=== PATIENT | female | born 1940 | race Two or more races ===

== ENCOUNTER 2016-11-28 19:08 | Inpatient (IN) | payer OTHER, MEDICAID ==
[~2016-11-28] VITALS: Ht 157.5 cm; Wt 45.8 kg
--- NOTE | 2016-11-28 00:10 | NUR ---
RN NOTES: DR PONCE AT BEDSIDE TO ASSESS PATIENT. ALSO INFORMED HIM REGARDING PATIENT'S HOME MED OF BRILINTA 90 MG PO BID. NO ORDER RECEIVED IF IT IS TO BE CONTINUED, PER MD, CARDIO WILL CONSULT PATIENT IN AM. MD ORDERED FOR ACCUCHECK MILD ACHS WELL HGBA1C. ORDERS NOTED AND CARRIED OUT. Addendum: 11/29/16 at 0059 by IMELDA CASTRO RN WRONG TIME/DATE. PLEASE DISREGARD.
--- NOTE | 2016-11-28 19:16 | NUR ---
PT BIB [facility] FROM [facility] AT FACILITY. INCREASING DEMENTIA AND PT IS AA&O X2. PT AMBULATES WITH ASSISTANCE. PT STATED THAT SHE USES A WALKER TO AMBULATE. PT IS ON THE MONITOR AND CONTINUOUS PULSE OX.
--- NOTE | 2016-11-28 19:32 | NUR ---
PT IS UNABLE TO GIVE A URINE SAMPLE. PT AMBULATED BACK TO BED #3 WITH ASSISTANCE. EKG IN PROGRESS AT THE BEDSIDE. SOFTWARE APPLICATIONS SPECIALIST IS AT THE BEDSIDE.
--- NOTE | 2016-11-28 19:32 | NUR ---
DR. MENDEZ NOTIFIED THAT PT IS UNABLE TO GIVE A URINE SAMPLE. DR. MENDEZ DOES NOT WANT A URINE SAMPLE BY EID AND SAID HE WAS NOT WORRIED IF PT WAS UNABLE TO GIVE A URINE SAMPLE.
[2016-11-28 20:00] LABS: CALCIUM, SERUM 9.6 mg/dL (8.5-10.1); CARBON DIOXIDE 28 mmol/L (21-32); CHLORIDE 99 mmol/L (98-107); CREATININE 2.1 mg/dL (0.6-1.3); GLUCOSE 98 mg/dL (74-106); POTASSIUM 3.1 mmol/L (3.5-5.1); SODIUM SERUM 139 mmol/L (136-145); UREA NITROGEN, BLOOD 45 mg/dL (7-18)
[2016-11-28 20:02] LABS: ALCOHOL, BLOOD < 3 mg/dL (0-0)
[2016-11-28] MEDS ORDERED: LISI-603 PO (20:07)
[2016-11-28] MEDS ORDERED: LEVO50TA8 PO (20:07)
[2016-11-28] MEDS ORDERED: CLON0.5T PO (20:07)
[2016-11-28] MEDS ORDERED: CARV12.52 PO (20:07)
[2016-11-28] MEDS ORDERED: METF500T4 PO (20:07)
[2016-11-28] MEDS ORDERED: TEMA15CA5 PO (20:07)
[2016-11-28] MEDS ORDERED: ASPI-991 PO (20:07)
[2016-11-28] MEDS ORDERED: ROSU20TA PO (20:07)
[2016-11-28] MEDS ORDERED: FURO40TA5 PO (20:07)
[2016-11-28] MEDS ORDERED: ONDA4TAB5 PO (20:07)
[2016-11-28 20:14] LABS: THYROID STIMULATING HORMONE 9.413 uIU/mL (0.358-3.74)
--- NOTE | 2016-11-28 20:50 | NUR ---
EID INSERTED PER DR. MENDEZ. APPROX 150 ML YELLOW URINE OUTPUT NOTED.
--- NOTE | 2016-11-28 21:00 | NUR ---
PT APPEARS TO BE RESTING COMFORTABLY WITH NO S/S OF PAIN OR DISTRESS.
[2016-11-28 21:10] LABS: APPEARANCE,URINE CLEAR (CLEAR); BILIRUBIN,URINE NEGATIVE (NEGATIVE); BLOOD, URINE NEGATIVE Ery/uL (NEGATIVE); COLOR,URINE YELLOW (YELLOW); KETONES,URINE NEGATIVE (NEGATIVE); LEUKOCYTE ESTERASE ,URINE NEGATIVE (NEGATIVE); NITRITE, URINE NEGATIVE (NEGATIVE); PH,URINE 5.5 (5.0-8.0); PROTEIN,URINE NEGATIVE (NEGATIVE); UGLUCOSE NEGATIVE (NEGATIVE); UROBILINOGEN,URINE 0.2 EU/dL (0.2)
[2016-11-28 21:13] LABS: BASOPHILS # (AUTO) 0.1 /CMM (0.0-0.2); BASOPHILS % (AUTO) 0.8 % (0.0-2.0); EOSINOPHILS # (AUTO) 0.3 /CMM (0.0-0.7); EOSINOPHILS % (AUTO) 3.4 % (0.0-6.0); HEMATOCRIT 35 % (33-45); HEMOGLOBIN 12.3 g/dL (11.5-14.8); LYMPHOCYTES # (AUTO) 2.9 /CMM (0.8-4.8); LYMPHOCYTES % (AUTO) 37.1 % (20.0-44.0); MEAN CORPUSCULAR HEMOGLOBIN 33 PG (26.0-33.0); MEAN CORPUSCULAR HGB CONC 36 g/dl (31.0-36.0); MEAN CORPUSCULAR VOLUME 92 fL (82-100); MONOCYTES % (AUTO) 12.8 % (2.0-12.0); NEUTROPHILS # (AUTO) 3.4 /CMM (1.8-8.9); NEUTROPHILS % (AUTO) 45.9 % (43.0-81.0); PLATELET COUNT (AUTO) 164 /CMM (150-450); RDW COEFFICIENT OF VARIATION 11.8 (11.5-15.0); RED BLOOD CELL COUNT(AUTO) 3.76 MIL/uL (4.0-5.2); WHITE BLOOD COUNT (AUTO) 7.7 K/uL (4.3-11.0)
--- NOTE | 2016-11-28 21:29 | NUR ---
CALLED [facility]- TRANSFER AND PUMPHOUSE OPERATOR CHIEF DOCTOR KRIS WAS PAGED.
--- NOTE | 2016-11-28 21:30 | NUR ---
REPORT GIVEN TO RACHANA OVALLE
--- NOTE | 2016-11-28 21:47 | NUR ---
DR MENDEZ ON THE PHONE WITH THE SPECIAL SKILLS OFFICER DOCTOR Lencho PONCE
--- NOTE | 2016-11-28 21:58 | NUR ---
PT LEFT FOR MS VIA DAVID.
[2016-11-28 22:00] VITALS: BP 121/72
--- NOTE | 2016-11-28 22:00 | NUR ---
MS RN ADMITTING NOTES: ADMITTED A 76 YO FEMALE PATIENT WHO WAS SEEN IN THE ER FOR AMS (PT WAS WANDERING PER REPORT), WITH ADMITTING DIAGNOSIS OF ARF. PATIENT BROUGHT TO MS FLOOR VIA DAVID, AOX1, CONFUSED, APPEARS CALM AND IN NO DISTRESS. ON ROOM AIR, BREATHING EVEN AND UNLABORED. ABLE TO MAKE NEEDS KNOWN, SPEAKS MOSTLY CONGOLESE, WITH SOME KOREAN. DOES NOT COMPLAIN OF ANY ACUTE PAIN. PIV OVER R HAND G20 INTACT AND PATENT TO FLUSH. EID CATHETER IN PLACE DRAINING CLEAR YELLOW URINE. PROVIDED FOR COMFORT AND SAFETY. BED IN LOWEST AND LOCKED POSITION, SIDERAILS UP X3. BED ALARM ON, FOR FREQ MONITORING FOR SAFETY. WILL CONT TO MONITOR.
--- NOTE | 2016-11-28 23:12 | NUR ---
RN NOTES: SPOKE TO PATIENT'S ROXANNE MIRLANDE JAKE TO INFORM OF PATIENT'S ROOM NUMBER. PER DAUGHTER, PATIENT IS FULL CODE, AND THAT SHE (MIRLANDE) IS THE DPOA.
[2016-11-28] MEDS ORDERED: Z GUARD REMEDY 2 OZ OINT TP PRN (23:30)
[2016-11-28] MEDS ORDERED: TEMAZEPAM 15 MG CAPSULE PO PRN (23:30)
[2016-11-28] MEDS ORDERED: ONDANSETRON HCL/PF 4 MG/2 ML VIAL IVP PRN (23:30)
[2016-11-28] MEDS ORDERED: ACETAMINOPHEN 325 MG TABLET PO PRN (23:30)
[2016-11-28] MEDS ORDERED: MORPHINE SULFATE INJ 2 MG/ML DISP.SYRIN IV PRN (23:30)
[2016-11-29] MEDS ORDERED: TICA90TA PO (00:01)
[2016-11-29] MEDS ORDERED: IV PREMIX 0.45% NS + KCL 1,000 ML IV ONE (00:06)
--- NOTE | 2016-11-29 00:10 | NUR ---
RN NOTES: DR PONCE AT BEDSIDE TO ASSESS PATIENT. ALSO INFORMED HIM REGARDING PATIENT'S HOME MED OF BRILINTA 90 MG PO BID. NO ORDER RECEIVED IF IT IS TO BE CONTINUED, PER MD, CARDIO WILL CONSULT PATIENT IN AM. MD ORDERED FOR ACCUCHECK MILD ACHS WELL HGBA1C. ORDERS NOTED AND CARRIED OUT.
[2016-11-29] MEDS ORDERED: IV SET PRIMARY PUMP SET 1 EA INFUS.SET MC ONE (00:15)
[2016-11-29] MEDS: BLOOD SUGAR DIAGNOSTIC 1 EACH STRIP IN SCH ×5 (00:21→22:47)
[2016-11-29] MEDS ORDERED: DEXTROSE 50%-WATER 50 ML DISP.SYRIN IV PRN (00:30)
--- NOTE | 2016-11-29 00:30 | NUR ---
RN NOTES: PATIENT'S BLOOD SUGAR CHECKED AT 93 MG/DL. NO INSULIN COVERAGE NEEDED AT THIS TIME. OFFERED LIGHT SNACK. WILL CONT TO MONITOR.
[2016-11-29] MEDS ORDERED: clonazePAM 0.5 MG TABLET ONE (00:43)
[2016-11-29] MEDS: clonazePAM 0.5 MG TABLET PO SCH ×3 (00:50→17:06)
--- NOTE | 2016-11-29 07:30 | NUR ---
MS RN CLOSING NOTES: PATIENT IN BED, AOX1, ON ROOM AIR, BREATHING EVEN AND UNLABORED. APPEARS CALM AND IN NO DISTRESS. PIV OVER R HAND G20 INTACT AND PATENT, INFUSING WELL WITH 1/2 NS + 20 MEQS KCL RUNNING AT 80 ML/HR. EID CATHETER IN PLACE, DRAINED TOTAL OF 800 CC THROUGH SHIFT. DUE MEDS GIVEN. PROVIDED FOR COMFORT AND SAFETY. BED IN LOWEST AND LOCKED POSITION, SIDERAILS UP X3, BED ALARMS ON. CALL LIGHT WITHIN REACH. WILL ENDORSE TO AM RN FOR ADA.
--- NOTE | 2016-11-29 07:45 | NUR ---
MS RN OPENING NOTE PATIENT IS ALERT AND ORIENTED x1. PERIODS OF CONFUSION. ABLE TO COMMUNICATE NEEDS. IV INTACT AND PATENT NO REDNESS OR SWELLING NOTED. CALL LIGHT WITHIN REACH. SAFETY MEASURES IMPLEMENTED. AWAITING PHYSICAL THERAPY EVALUATION. WILL CONTINUE TO MONITOR
[2016-11-29 08:00] VITALS: BP 129/65
[2016-11-29] MEDS: PANTOPRAZOLE 40 MG TABLET.DR PO SCH (08:05)
[2016-11-29] MEDS: LEVOTHYROXINE SODIUM 50 MCG TABLET PO SCH (08:05)
[2016-11-29] MEDS: ASPIRIN EC 81 MG TABLET.DR PO SCH (08:05)
[2016-11-29 08:28] LABS: BASOPHILS % (AUTO) 0.6 % (0.0-2.0); EOSINOPHILS # (AUTO) 0.2 /CMM (0.0-0.7); EOSINOPHILS % (AUTO) 4.3 % (0.0-6.0); HEMATOCRIT 30 % (33-45); HEMOGLOBIN 10.4 g/dL (11.5-14.8); LYMPHOCYTES # (AUTO) 1.9 /CMM (0.8-4.8); LYMPHOCYTES % (AUTO) 39.5 % (20.0-44.0); MEAN CORPUSCULAR HEMOGLOBIN 32 PG (26.0-33.0); MEAN CORPUSCULAR HGB CONC 35 g/dl (31.0-36.0); MEAN CORPUSCULAR VOLUME 92 fL (82-100); MONOCYTES # (AUTO) 0.5 /CMM (0.1-1.30); MONOCYTES % (AUTO) 11.4 % (2.0-12.0); NEUTROPHILS # (AUTO) 2.1 /CMM (1.8-8.9); NEUTROPHILS % (AUTO) 44.2 % (43.0-81.0); PLATELET COUNT (AUTO) 126 /CMM (150-450); RED BLOOD CELL COUNT(AUTO) 3.22 MIL/uL (4.0-5.2); WHITE BLOOD COUNT (AUTO) 4.7 K/uL (4.3-11.0)
[2016-11-29 08:48] LABS: CHOLESTEROL 86 mg/dL (<200); HDL CHOLESTEROL 39 mg/dL (40-60); LDL 30 mg/dL (0-99); TRIGLYCERIDES 90 mg/dL (30-150)
[2016-11-29 08:52] LABS: ALANINE AMINOTRANSFERASE 63 U/L (12-78); ALBUMIN 3.5 g/dL (3.4-5.0); ALKALINE PHOSPHATASE 63 U/L (46-116); ASPARTATE AMINOTRANSFERASE 33 U/L (15-37); B-TYPE NATRIURETIC PEPTIDE 371 PG/ML (0-125); BILIRUBIN,TOTAL 0.6 mg/dL (0.2-1.0); CARBON DIOXIDE 26 mmol/L (21-32); CHLORIDE 102 mmol/L (98-107); CREATININE 1.7 mg/dL (0.6-1.3); GLUCOSE 92 mg/dL (74-106); MAGNESIUM 1.9 mg/dL (1.8-2.4); PHOSPHORUS 4.4 mg/dL (2.5-4.9); POTASSIUM 3.2 mmol/L (3.5-5.1); SODIUM SERUM 140 mmol/L (136-145); TOTAL PROTEIN, SERUM 6.6 g/dL (6.4-8.2); UREA NITROGEN, BLOOD 42 mg/dL (7-18)
[2016-11-29] MEDS: TICAGRELOR 90 MG TABLET PO SCH ×2 (09:07→17:39)
[2016-11-29 10:00] VITALS: BP 129/63
[2016-11-29] MEDS: CARVEDILOL 12.5 MG TABLET PO SCH ×2 (11:37→17:06)
[2016-11-29] MEDS: INSULIN REGULAR, HUMAN 100 UNIT/ML 3 ML VIAL SQ PRN ×2 (12:00→22:51)
--- NOTE | 2016-11-29 15:28 | NUR ---
MS RN BLOOD SUGAR NOTE PATIENT'S FAMILY NOTIFIED ME THAT PATIENT WAS SWEATING. BLOOD SUGAR CHECKED-68. GAVE PATIENT ORANGE JUICE TO RAISE SUGAR. RECHECKED, 77. PATIENT STABLE. WILL CONTINUE TO MONITOR PATIENT'S BLOOD SUGAR
[2016-11-29 16:00] VITALS: BP 113/66
--- NOTE | 2016-11-29 16:06 | NUR ---
MS RN NOTE PER DR. DOMO ROB TO DISCONTINUE EID CATHETER. INFORMED DAUGHTER OF EID REMOVAL. EID REMOVED, PATIENT TOLERATED WELL. NO COMPLICATIONS. WILL INFORM SCIENTIST NURSE
--- NOTE | 2016-11-29 18:22 | NUR ---
MS RN CLOSING NOTE PATIENT IS ALERT AND ORIENTED x1. PERIODS OF CONFUSION. NO PAIN AT THIS TIME. NO SOB OR DISTRESS NOTED. ALL DUE MEDICATION GIVEN ORDERED. SAFETY MEASURES IMPLEMENTED. IV INTACT AND PATENT NO REDNESS OR SWELLING NOTED. FAMILY AT BEDSIDE.ALL NURSING CARE NEEDS ATTENDED TO. WILL ENDORSE TO AIR TURNING MACHINE FEEDER NURSE
--- NOTE | 2016-11-29 19:30 | NUR ---
MS RN OPENING NOTES: PATIENT IN BED, AOX1, ON ROOM AIR, BREATHING EVEN AND UNLABORED. APPEARS CALM AND IN NO DISTRESS. DENIES ANY PAIN. PIV OVER R HAND G 20 INTACT AND INFUSING WELL WITH 1/2 NS RUNNING AT 80 ML/HR. EID CATHETER REMOVED ALREADY, PATIENT CONTINENT AND ABLE TO SAY WHEN SHE WANTS TO BE ASSISTED TO BATHROOM. PROVIDED FOR COMFORT AND SAFETY. BED IN LOWEST AND LOCKED POSITION, SIDERAILS UP X3, BED ALARMS ON, CALL LIGHT ON HAND. WILL CONT TO MONITOR.
[2016-11-29 20:00] VITALS: BP 109/58
[2016-11-29 22:00] VITALS: BP 109/58
--- NOTE | 2016-11-29 22:40 | NUR ---
RN NOTES: BS CHECKED AT 162 MG/DL, COVERED WITH 3 UNITS REGULAR INSULIN PER SCALE. GAVE LIGHT SNACK TO PATIENT.
--- NOTE | 2016-11-30 02:57 | NUR ---
RN NOTES: PATIENT PULLED OUT HER IV FROM R HAND, REINSERTED NEW IV LINE OVER L HAND G22. IVF OF 1/2 NS + 20 MEQS KCL INFUSING WELL AT 80 ML/HR. WILL CONT TO MONITOR.
--- NOTE | 2016-11-30 06:19 | NUR ---
MS RN CLOSING NOTES: PATIENT IN BED, AOX1, ON ROOM AIR, BREATHING EVEN AND UNLABORED. APPEARS CALM AND IN NO DISTRESS. PIV OVER L HAND G22 INTACT AND INFUSING WELL WITH IV OF 1/2 NS + 20 MEQS KCL RUNNING AT 80 ML/HR. BLOOD SUGAR CHECKED AT 105 MG/DL, NO INSULIN COVERAGE NEEDED AT THIS TIME. PROVIDED FOR COMFORT AND SAFETY. BED IN LOWEST AND LOCKED POSITION, SIDERAILS UP X3, BED ALARMS ON. NO ACUTE CHANGE IN CONDITION NOTED THROUGH SHIFT. WILL ENDORSE TO AM RN FOR ADA.
[2016-11-30] MEDS: BLOOD SUGAR DIAGNOSTIC 1 EACH STRIP IN SCH ×4 (06:33→21:51)
--- NOTE | 2016-11-30 07:30 | NUR ---
MS/RN Patient received Patient received from shift stacker. Received patient sleeping, in no apparent distress. Bed in low setting, brakes locked, side rails x3 in upright position. Bed alarm switched on, call light next to patient. Will continue to monitor and ensure safety.
[2016-11-30] MEDS: LEVOTHYROXINE SODIUM 50 MCG TABLET PO SCH (07:48)
[2016-11-30] MEDS: PANTOPRAZOLE 40 MG TABLET.DR PO SCH (07:48)
[2016-11-30] MEDS: clonazePAM 0.5 MG TABLET PO SCH ×2 (07:48→17:20)
[2016-11-30] MEDS: ASPIRIN EC 81 MG TABLET.DR PO SCH (07:48)
[2016-11-30] MEDS: CARVEDILOL 12.5 MG TABLET PO SCH ×2 (07:49→17:21)
[2016-11-30] MEDS: TICAGRELOR 90 MG TABLET PO SCH ×2 (07:49→17:20)
[2016-11-30 08:00] VITALS: BP 133/65
--- NOTE | 2016-11-30 08:30 | NUR ---
MS/RN Medications Morning medications administered as ordered, no problems swallowing.
--- NOTE | 2016-11-30 10:47 | NUR ---
MS/RN S/B Dr Monique Seen by Dr Monique - labs ordered for tomorrow.
[2016-11-30 10:52] VITALS: BP 133/65
[2016-11-30 11:20] LABS: CALCIUM, SERUM 8.7 mg/dL (8.5-10.1); CARBON DIOXIDE 26 mmol/L (21-32); CHLORIDE 104 mmol/L (98-107); CREATININE 1.6 mg/dL (0.6-1.3); GLUCOSE 211 mg/dL (74-106); POTASSIUM 3.8 mmol/L (3.5-5.1); SODIUM SERUM 140 mmol/L (136-145); UREA NITROGEN, BLOOD 27 mg/dL (7-18)
--- NOTE | 2016-11-30 12:31 | NUR ---
MS/RN Blood sugar Blood sugar at noon - 156.
--- NOTE | 2016-11-30 13:00 | NUR ---
MS/RN S/B Dr Woodard Seen by Dr Woodard - labs ordered for tomorrow, IV fluids discontinued as patient taking oral fluids. Possible discharge tomorrow.
[2016-11-30 16:00] VITALS: BP 151/63
--- NOTE | 2016-11-30 16:48 | NUR ---
MS/RN Blood sugar Blood sugar 128, no coverage needed.
--- NOTE | 2016-11-30 18:31 | NUR ---
MS/RN End note Patient remains pleasantly confused, cooperative with plan of care and taking medications as ordered. Safety ensured throughout shift, ambulating using walker and nurse for standby assist. Will endorse to weight shifter.
--- NOTE | 2016-11-30 19:30 | NUR ---
MS RN OPENING NOTES: PATIENT IN BED, AOX1, ON ROOM AIR, BREATHING EVEN AND UNLABORED. APPEARS CALM AND IN NO DISTRESS, DENIES PAIN. PIV OVER L HAND G 22 INTACT AND PATENT TO FLUSH. PROVIDED FOR COMFORT AND SAFETY. BED IN LOWEST AND LOCKED POSN, SIDERAILS UP X3, BED ALARMS ON. WILL CONT TO MONITOR.
[2016-11-30 20:00] VITALS: BP 125/51
[2016-11-30] MEDS: INSULIN REGULAR, HUMAN 100 UNIT/ML 3 ML VIAL SQ PRN (21:56)
[2016-11-30 22:00] VITALS: BP 125/51
--- NOTE | 2016-11-30 22:20 | NUR ---
RN NOTES: BLOOD SUGAR CHECKED AT 181 MG/DL, ADMINISTERED 3 UNITS REGULAR INSULIN PER SCALE AND OFFERED LIGHT SNACK. WILL CONT TO MONITOR.
--- NOTE | 2016-12-01 06:42 | NUR ---
MS RN CLOSING NOTES: PATIENT IN BED, AOX2, ON ROOM AIR, BREATHING EVEN AND UNLABORED. APPEARS CALM AND IN NO DISTRESS, DENIES PAIN. WAS ABLE TO SLEEP WELL THROUGH NIGHT. PIV OVER L HAND G22 INTACT AND PATENT TO FLUSH. BLOOD SUGAR CHECKED AT 114 MG/DL PROVIDED FOR COMFORT AND SAFETY. BED IN LOWEST AND LOCKED POSITION, SIDERAILS UP X3, BED ALARMS ON. NO ACUTE CHANGE IN CONDITION NOTED THROUGH SHIFT. WILL ENDORSE TO AM RN FOR ADA.
[2016-12-01] MEDS: BLOOD SUGAR DIAGNOSTIC 1 EACH STRIP IN SCH ×4 (06:49→21:05)
[2016-12-01 06:59] LABS: CALCIUM, SERUM 9.5 mg/dL (8.5-10.1); CARBON DIOXIDE 27 mmol/L (21-32); CHLORIDE 106 mmol/L (98-107); CREATININE 1.4 mg/dL (0.6-1.3); GLUCOSE 118 mg/dL (74-106); MAGNESIUM 1.8 mg/dL (1.8-2.4); POTASSIUM 3.5 mmol/L (3.5-5.1); SODIUM SERUM 143 mmol/L (136-145); UREA NITROGEN, BLOOD 23 mg/dL (7-18)
--- NOTE | 2016-12-01 07:42 | NUR ---
MS/RN Patient received Patient received from overnight associate. Appears comfortable, in no distress, denies pain. Call light within reach, will continue to monitor and ensure safety.
[2016-12-01 08:00] VITALS: BP 132/71
[2016-12-01] MEDS: PANTOPRAZOLE 40 MG TABLET.DR PO SCH (08:02)
[2016-12-01] MEDS: LEVOTHYROXINE SODIUM 50 MCG TABLET PO SCH (08:02)
[2016-12-01] MEDS: ASPIRIN EC 81 MG TABLET.DR PO SCH (08:02)
[2016-12-01] MEDS: clonazePAM 0.5 MG TABLET PO SCH ×2 (08:02→17:57)
[2016-12-01] MEDS: CARVEDILOL 12.5 MG TABLET PO SCH ×2 (08:03→17:57)
[2016-12-01] MEDS: TICAGRELOR 90 MG TABLET PO SCH ×2 (08:04→17:57)
--- NOTE | 2016-12-01 08:06 | NUR ---
MS/RN Medications Morning medications administered as ordered.
[2016-12-01 10:09] VITALS: BP 132/79
[2016-12-01] MEDS: INSULIN REGULAR, HUMAN 100 UNIT/ML 3 ML VIAL SQ PRN ×2 (12:06→21:08)
--- NOTE | 2016-12-01 13:30 | NUR ---
MS/RN S/B Vannessa Hartmann CARTON MAKING MACHINE OPERATOR Seen by CARTON MAKING MACHINE OPERATOR - patient to be discharged back to facility today. Psychiatric evaluation to be completed as outpatient.
--- NOTE | 2016-12-01 14:00 | NUR ---
MS/telephone services sales representative update Spoke with patient's daughter/DPOA Sindhu regarding discharge order. Per family, they wish for patient to be placed in different facility as they are not happy with standard of care at [facility]. Will relay information to welfare case worker.
[2016-12-01 16:00] VITALS: BP 134/85
--- NOTE | 2016-12-01 16:04 | NUR ---
MS/social media project manager Waiting for embedded case manager to speak with daughter regarding new placement for patient.
--- NOTE | 2016-12-01 18:12 | NUR ---
MS/assessment director Discharge on hold at this time as insurance are not authorizing [facility]. Per human services case manager, will call [facility] to make sure that bed is available. Possible that discharge may not happen until tomorrow. Both HOOP COILING MACHINE OPERATOR and family aware. Discharge paperwork completed, chart copied. Will endorse to power and recovery shift engineer.
--- NOTE | 2016-12-01 19:30 | NUR ---
MS/RN INITIAL NOTES RECEIVED REPORT FROM MICROWAVE REMOTE SENSING SCIENTIST. PT IS AWAKE IN BED, A/O X2. NO SIGNS OF SOB, NO COMPLAINTS OF PAIN AT THIS TIME. SAFETY PRECAUTIONS PER FALL INITIATED, CALL LIGHT WITHIN REACH. WILL CONTINUE TO MONITOR PT
[2016-12-01 19:57] VITALS: BP 131/71
[2016-12-01 20:47] VITALS: BP 131/71
--- NOTE | 2016-12-01 21:09 | NUR ---
MS RN BLOOD SUGAR BLOOD SUGAR 110, NO INSULIN NEEDED AT THIS TIME. WILL CONTINUE TO MONITOR FOR ANY SIGNS AND SYMPTOMS OF HYPO/HYPER GLYCEMIA
[2016-12-02] MEDS: PANTOPRAZOLE 40 MG TABLET.DR PO SCH (06:31)
[2016-12-02] MEDS: LEVOTHYROXINE SODIUM 50 MCG TABLET PO SCH (06:31)
[2016-12-02] MEDS: BLOOD SUGAR DIAGNOSTIC 1 EACH STRIP IN SCH ×2 (06:31→12:15)
--- NOTE | 2016-12-02 06:35 | NUR ---
MS RN BLOOD SUGAR BLOOD SUGAR 126, NO INSULIN NEEDED AT THIS TIME. WILL CONTINUE TO MONITOR FOR ANY SIGNS AND SYMPTOMS OF HYPO/HYPER GLYCEMIA
--- NOTE | 2016-12-02 06:49 | NUR ---
MS RN CLOSING NOTES: PATIENT IS IN THE CHAIR, AOX1, ON ROOM AIR, BREATHING EVEN AND UNLABORED. APPEARS CALM AND IN NO DISTRESS, DENIES PAIN. PT DID NOT SLEEP. PIV OVER L HAND G22 INTACT AND PATENT TO FLUSH. BED IN LOWEST AND LOCKED POSITION. NO ACUTE CHANGE IN CONDITION NOTED THROUGH SHIFT. WILL ENDORSE TO AM
--- NOTE | 2016-12-02 07:10 | NUR ---
RN MS NOTES PATIENT ALERT AND ORIENTED, AMBULATES IN THE HALLWAY, ASKING WHAT TIME SHE'S GOING HOME, NO S/SX OF DISTRESS NOTED, NO COMPLAINT OF PAIN, NEEDS ATTENDED AND MET, CURRENTLY WAITING FOR PLACEMENT, WILL CONTINUE TO MONITOR.
[2016-12-02 08:00] VITALS: BP 140/73
[2016-12-02] MEDS: ASPIRIN EC 81 MG TABLET.DR PO SCH (08:54)
[2016-12-02] MEDS: CARVEDILOL 12.5 MG TABLET PO SCH (08:54)
[2016-12-02] MEDS: clonazePAM 0.5 MG TABLET PO SCH (08:55)
[2016-12-02 10:00] VITALS: BP 140/73
[2016-12-02 10:35] LABS: CALCIUM, SERUM 9.7 mg/dL (8.5-10.1); CARBON DIOXIDE 25 mmol/L (21-32); CHLORIDE 102 mmol/L (98-107); CREATININE 1.5 mg/dL (0.6-1.3); GLUCOSE 173 mg/dL (74-106); POTASSIUM 3.7 mmol/L (3.5-5.1); SODIUM SERUM 139 mmol/L (136-145); UREA NITROGEN, BLOOD 18 mg/dL (7-18)
[2016-12-02] MEDS: TICAGRELOR 90 MG TABLET PO SCH (10:57)
[2016-12-02] MEDS ORDERED: IBUP-1481 PO (11:36)
[2016-12-02] MEDS: INSULIN REGULAR, HUMAN 100 UNIT/ML 3 ML VIAL SQ PRN (12:19)
--- NOTE | 2016-12-02 13:55 | NUR ---
WASTE COLLECTION DRIVER NOTES PATIENT STILL CONFUSED, ATE LUNCH, PIV REMOVED, SKIN ASSESSED PHOTOS TAKEN, NO DISTRESS NOTED, PATIENT GIVEN DISCHARGE INSTRUCTIONS, VERBALIZED UNDERSTANDING, CONFUSED BUT ABLE TO ANSWER SOME QUESTIONS, REPORT CALLED TO GREGORY REICH AT [facility] AND GAVE DISCHARGE INSTRUCTIONS ALSO, MED RECON ALONG WITH PATIENT'S DISCHARGE PAPERWORKS GIVEN TO GUILLOTINE OPERATOR, PATIENT HAS NO BELONGINGS EXCEPT FOR CLOTHES SHE'S WEARING, TRANSFERRED TO [facility] IN STABLE CONDITION VIA GURNEY.
== END 2016-12-02 14:00 | DRG 682 ==
LOC: ER 19:10 → MEDSG2 20:42
PROVIDERS: ADMIT Internal Medicine; ATTEND Internal Medicine
DX: N17.0 Acute kidney failure with tubular necrosis (principal); G93.41 Metabolic encephalopathy; D68.59 Other primary thrombophilia; F03.90 Unspecified dementia, unspecified severity, without behavioral disturbance, psychotic disturbance, mood disturbance, and anxiety; E78.5 Hyperlipidemia, unspecified; E03.9 Hypothyroidism, unspecified; E87.6 Hypokalemia; F17.210 Nicotine dependence, cigarettes, uncomplicated; F41.9 Anxiety disorder, unspecified; I25.10 Atherosclerotic heart disease of native coronary artery without angina pectoris; I25.2 Old myocardial infarction; M17.0 Bilateral primary osteoarthritis of knee; J44.9 Chronic obstructive pulmonary disease, unspecified; Z98.61 Coronary angioplasty status; I12.9 Hypertensive chronic kidney disease with stage 1 through stage 4 chronic kidney disease, or unspecified chronic kidney disease; N18.9 Chronic kidney disease, unspecified; E11.22 Type 2 diabetes mellitus with diabetic chronic kidney disease; Z91.14 Patient's other noncompliance with medication regimen; Z79.899 Other long term (current) drug therapy
CPT/HCPCS: 36415; 71010-TC; 80048-TC; 80053-TC; 80061-TC; 81000-TC; 82962-TC; 83735-TC; 83880; 84100-TC; 84443-TC; 84484-TC; 85025-TC; 87081-TC; 97001-TC; 97116-TC; 97530-TC; A4606; G0480; J1815; J3480; J3490; Z7610